=== PATIENT | female | born 1975 | race Caucasian/White ===

== ENCOUNTER 2019-03-01 13:11 | Emergency (ER) | payer OTHER ==
[2019-03-01 13:28] VITALS: BP 124/73
--- NOTE | 2019-03-01 13:33 | ED Physician Documentation ---
Fall - HISTORIAN Historian: patient - HPI Stated Complaint: Fall Chief Complaint: Fall Additional Information: 44 year old female presents to the ER ambulatory; steady gait; with c/o left hand and right ankle pain s/p fall at 7 a.m. this morning. Patient states that she slipped in the snow. She has tenderness to left knee and top of left foot but denies abnormal pain. She denies any head injury or syncopal episode. Onset: today Where: home Context: slipped (on the snow) r: mild Associated Symptoms:: no loss of consciousness Location of Pain/Injury: upper extremity, lower extremity Injury to Right Extremity: ankle Injury to Left Extremity: hand - ROS CONST: no problems NEURO: denies: dizziness MS/SKIN/LYMPH: ankle swelling. denies: weakness EYES/ENT: none CVS/RESP: none GI/: denies: nausea, vomiting - PAST HX Past History: other (migraines, depression, palpitations) Immunizations: UTD Allergies/Adverse Reactions: Allergies Allergy/AdvReac Type Severity Reaction Status Date / Time codeine Allergy Verified 03/01/19 13:28 Home Medications: Ambulatory Orders Medication Instructions Recorded Cyanocobalamin (Vitamin B-12) 1 tab PO DAILY 03/01/19 [Vitamin B-12] Diltiazem HCl [Tiazac] 1 tab PO DAILY 03/01/19 Duloxetine HCl [Cymbalta] 1 tab PO DAILY 03/01/19 Loratadine/Pseudoephedrine Sul 1 tab PO BID 03/01/19 [Claritin-D 12 Hour Tablet] Metoprolol Succinate [Toprol XL] 1 tab PO DAILY 03/01/19 Montelukast Sodium [Singulair] 1 tab PO DAILY 03/01/19 Tizanidine HCl [Zanaflex] 1 tab PO TID PRN 03/01/19 Zonisamide 2 tab PO BID 03/01/19 - SOCIAL HX Smoking History: less than 1 pack/day Alcohol Use: none Drug Use: none - FAMILY HX Family History: none - VITAL SIGNS Vital Signs: Vital Signs Temp Pulse Resp BP Pulse Ox 80 16 124/73 99 03/01/19 13:15 03/01/19 13:15 03/01/19 13:15 03/01/19 13:15 - REVIEWED ASSESSMENTS Nursing Assessment Reviewed: Yes Vitals Reviewed: Yes ED Results Lab/Radiology - Radiology Radiology Impressions: Exam: Right ankle. History: Fall. AP, lateral and mortise view of the right ankle are submitted. No acute fracture or dislocations are identified. Ankle mortise is adequately maintained. Soft tissue swelling over the ankle is noted. Spur off the posterior surface of the calcaneus is noted. Impression: Soft tissue swelling. Heel spur. Electronically signed on Mar 01, 2019 2:32:21 PM CDT by: Hung Barnes Exam: Left hand. History: Fall. PA, lateral and oblique view of the left hand are submitted. No signs of fracture or dislocation is seen. No bony erosions are seen. No soft tissue abnormality is identified. Impression: No bony abnormality. Electronically signed on Mar 01, 2019 2:31:30 PM CDT by: Hung Barnes - Orders Orders: ED Orders Category Date Time Status HAND 3 VIEWS OR MORE [RAD] Stat Exams 03/01/19 Ordered RIGHT ANKLE [ANKLE 3 VIEWS OR MORE] [RAD] Stat Exams 03/01/19 Ordered Ketorolac Tromethamine [Toradol] Med 03/01/19 13:31 Once 60 mg IM NOW ONE Fall Physical Exam - Physical Exam General Appearance: no acute distress, alert Head: non-tender, no swelling Neck: non-tender, trachea midline Eye: RIDGE, EOMI Resp/CVS: chest non-tender, breath sounds nml, no resp. distress, heart sounds nml Abdomen: soft, normal bowel sounds Neuro: oriented x3, CN's nml as tested, sensation nml, motor nml, mood/affect nml, poem writer nml, poem writer symmetrical Skin: color nml, warm, other (abrasion to the left hand) Back: normal inspection Extremities: pelvis stable, hips non-tender, other (right ankle swelling; left hand 5th digit swelling) Joint: joints nml, nml ROM - Yun Coma Score Eyes Open: Spontaneous Speech: Oriented Motor: Obeys Commands Discharge Clincal Impression: Right ankle sprain, Injury of left hand, Work related injury Referrals: Primary Doctor,No [Primary Care Provider] - 2 Days Additional Instructions: Wear scot wrap as needed for support Alternate Tylenol and Ibuprofen as needed for discomfort Elevate when sitting May ice as needed for inflammation Follow up with PCP for re-evaluation Wear hand splint as needed for support. Condition: Good Disposition: 01 HOME, SELF-CARE Decision to Admit: NO Decision Time: 15:12
[2019-03-01] MEDS: KETOROLAC TROMETHAMINE 60 MG/2 ML VIAL IM ONE (13:40)
--- NOTE | 2019-03-01 14:35 | Diagnostic Imaging Report ---
PATIENT MR#: [id number] PATIENT PATIENT NAME: UCHE HUTCHINSON DATE OF : 1975 REFERRING PHYSICIAN: Adri Jones EXAM DATE: 03/01/2019 ACCESSION NUMBER: [id number] EXAM DESCRIPTION: ANKLE 3 VIEWS OR MORE Exam: Right ankle. History: Fall. AP, lateral and mortise view of the right ankle are submitted. No acute fracture or dislocations are identified. Ankle mortise is adequately maintained. Soft tiss ue swelling over the ankle is noted. Spur off the posterior surface of the calcaneus is noted. Impression: Soft tissue swelling. Heel spur. Read by: Dr. Hung Rios Transcribed by: Transcribed Date: Electronically signed by: Dr. Hung Rios Date signed: 03/01/2019 2:34:51 PM
--- NOTE | 2019-03-01 14:35 | Diagnostic Imaging Report ---
PATIENT MR#: [id number] PATIENT PATIENT NAME: UCHE HUTCHINSON DATE OF : 1975 REFERRING PHYSICIAN: Adri Jones EXAM DATE: 03/01/2019 ACCESSION NUMBER: [id number] EXAM DESCRIPTION: HAND 3 VIEWS OR MORE Exam: Left hand. History: Fall. PA, lateral and oblique view of the left hand are submitted. No signs of fracture or dislocation is seen. No bony erosions are seen. No soft tissue abnormality is identified. Impression: No bony abnormality. Read by: Dr. Hung Rios Transcribed by: Transcribed Date: Electronically signed by: Dr. Hung Rios Date signed: 03/01/2019 2:34:51 PM
== END 2019-03-01 15:40 | disposition home or self-care (01) ==
LOC: ED 13:11
DX: S93.401A Sprain of unspecified ligament of right ankle, initial encounter (principal); W00.0XXA Fall on same level due to ice and snow, initial encounter
CPT/HCPCS: 73130; 73610; 96372; 99282; 99284; J1885